=== PATIENT | female | born 1980 | race Caucasian/White ===

== ENCOUNTER 2022-11-16 13:21 | Emergency (ER) | payer BC ==
[~2022-11-16] VITALS: Ht 157.5 cm; Wt 53.0 kg
[2022-11-16] MEDS ORDERED: ONDANSETRON HCL 4MG/2ML INJ IV STA (13:26)
[2022-11-16] MEDS ORDERED: FAMOTIDINE 20MG/2ML VIAL IV ONE (13:30)
[2022-11-16] MEDS ORDERED: DIPHENHYDRAMINE 50MG/ML VIAL IV ONE (13:30)
[2022-11-16] MEDS ORDERED: EPINEPHRINE 1:1000 1 MG/ML AMP IM ONE (13:30)
[2022-11-16] MEDS ORDERED: SODIUM CHLORIDE 0.9% 1,000 ML IV ONE (13:30)
[2022-11-16] MEDS ORDERED: METHYLPREDNISOLONE SOD SUCC 125 MG/2 ML VIAL IV ONE (13:30)
[2022-11-16 14:46] VITALS: BP 123/95
[2022-11-16] MEDS ORDERED: P20 MT (15:42)
[2022-11-16] MEDS ORDERED: DIPH25CA83 MT (15:42)
[2022-11-16] MEDS ORDERED: EPIN0.3P3 IM (15:42)
[2022-11-16] MEDS ORDERED: FAMO-135 MT (15:42)
== END 2022-11-16 16:34 | disposition home or self-care (01) ==
LOC: ER 13:21
DX: T78.05XA Anaphylactic reaction due to tree nuts and seeds, initial encounter (principal); X58.XXXA Exposure to other specified factors, initial encounter; Y93.89 Activity, other specified; Y92.89 Other specified places as the place of occurrence of the external cause
CPT/HCPCS: 96361; 96372; 96374; 96375; 99284; J2930; J3490; J7030; Z7610; J1200; J2405